=== PATIENT | male | born 1990 | race Caucasian/White ===

== ENCOUNTER 2021-02-03 10:06 | Outpatient (CLI) | payer BC ==
[2021-02-03] MEDS ORDERED: Iopamidol 370 76% 100 ML VIAL ONE (15:12)
== END 2021-02-03 10:07 | disposition home or self-care (01) ==
LOC: CT 10:06
PROVIDERS: ATTEND Student in an Organized Health Care Education/Training Program
DX: R13.10 Dysphagia, unspecified (principal); K21.9 Gastro-esophageal reflux disease without esophagitis
CPT/HCPCS: 70491; 74220; Q9967